=== PATIENT | male | born 1995 | race Hispanic/Latino ===

== ENCOUNTER 2021-06-23 13:35 | Emergency (ER) | payer SELFPAY ==
[~2021-06-23] VITALS: Ht 190.5 cm; Wt 147.4 kg
[2021-06-23] MEDS ORDERED: KETOROLAC TROMETHAMINE 30 MG/ML VIAL IV STA (13:52)
[2021-06-23] MEDS ORDERED: SODIUM CHLORIDE 0.9% 1000ML 1,000 ML IV SCH ×2 (14:00→14:15)
[2021-06-23 14:10] LABS: BASOPHILS # (AUTO) 0.1 (0.0-0.1); BASOPHILS % 0.5 % (0.0-1.0); EOSINOPHILS # (AUTO) 0.1 (0.0-0.4); EOSINOPHILS % 0.5 % (0.0-6.0); HEMOGLOBIN 15.8 g/dL (14.0-18.0); LYMPHOCYTES # (AUTO) 3.1 (1.0-3.2); MEAN CORPUSCULAR HEMOGLOBIN 29.9 pg (28-32); MEAN CORPUSCULAR HGB CONC 33.6 g/dL (31-35); MEAN CORPUSCULAR VOLUME 88.8 fL (81-99); MONOCYTES # (AUTO) 1.3 (0.2-0.8); MONOCYTES % 7.4 % (4.4-11.3); NEUTROPHILS # (AUTO) 12.6 (2.1-6.9); NEUTROPHILS % 73.4 % (38.7-80.0); PLATELET COUNT 274 x10e3/uL (140-360); RED BLOOD COUNT 5.29 x10e6/uL (4.3-5.7); RED CELL DISTRIBUTION WIDTH 12.5 % (11.7-14.4)
[2021-06-23] MEDS ORDERED: CEFTRIAXONE 1 GM in SODIUM CHLORIDE 0.9% 50ML 50 ML IV ONE (14:30)
[2021-06-23 14:57] LABS: CLARITY,URINE HAZY (CLEAR); COLOR,URINE YELLOW (YELLOW); KETONES,URINE TRACE (NEGATIVE); LEUKOCYTE ESTERASE ,URINE SMALL (NEGATIVE); NITRITE,URINE NEGATIVE (NEGATIVE); PROTEIN,URINE DIPSTICK NEGATIVE (NEGATIVE); URINE UROBILINOGEN 1 mg/dL (0.2 - 1)
[2021-06-23 14:58] LABS: ALBUMIN 4.2 g/dL (3.5-5.0); ALBUMIN/GLOBULIN RATIO 1.4 (0.8-2.0); ANION GAP 12.2 mmol/L (8-16); CALCIUM 9.4 mg/dL (8.4-10.2); CREATININE, SERUM 0.7 mg/dL (0.72-1.25); POTASSIUM 4.2 mmol/L (3.5-5.1)
[2021-06-23 15:06] LABS: WBC,URINE (MAN) 21-50 /HPF (0-5)
[2021-06-23 15:07] LABS: BACTERIA,URINE FEW /HPF; EPITHELIAL CELLS,URINE FEW /LPF
[2021-06-23] MEDS ORDERED: SODIUM CHLORIDE 0.9% 50ML 50 ML ONE (15:31)
[2021-06-23] MEDS ORDERED: IOPAMIDOL 370 MG/ML 200 ML INFUS..BTL INJ ONE (15:32)
[2021-06-23 17:37] VITALS: BP 139/78
[2021-06-24] MEDS ORDERED: AZITHROMYCIN 250 MG TAB PO SCH (09:00)
[2021-06-24] MEDS ORDERED: HYDROCODON-ACE1 EA12 PO (16:34)
[2021-06-24] MEDS ORDERED: BACTRIM DS TAB1 EACH PO (16:34)
== END 2021-06-23 17:43 | disposition home or self-care (01) ==
LOC: ER 13:45
DX: N50.811 Right testicular pain (principal); N45.3 Epididymo-orchitis; R10.31 Right lower quadrant pain; F17.210 Nicotine dependence, cigarettes, uncomplicated
CPT/HCPCS: 36415; 74177; 76870; 80053; 81001; 85025; 93005; 93976; 99284; J0696; J1885; J7030; Q9967

== ENCOUNTER 2021-06-24 16:10 | Emergency (ER) | payer SELFPAY ==
[~2021-06-24] VITALS: Ht 190.5 cm; Wt 147.4 kg
[2021-06-24] MEDS ORDERED: HYDROCODON-ACE1 EA12 PO (16:34)
[2021-06-24] MEDS ORDERED: BACTRIM DS TAB1 EACH PO (16:34)
== END 2021-06-24 16:47 | disposition home or self-care (01) ==
LOC: ER 16:25
DX: N50.811 Right testicular pain (principal); N45.3 Epididymo-orchitis
CPT/HCPCS: 99283